=== PATIENT | male | born 1955 | race Hispanic/Latino ===

== ENCOUNTER 2017-07-31 22:03 | Emergency (ER) | payer OTHER ==
[2017-07-31 22:09] VITALS: BP 139/90; PULSE 60; RESP 18; TEMP 98.1; O2SAT 100
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
== END 2017-08-01 00:05 | disposition home or self-care (01) ==
LOC: H.ER 22:03
DX: S13.4XXA Sprain of ligaments of cervical spine, initial encounter (principal); V49.40XA Driver injured in collision with unspecified motor vehicles in traffic accident, initial encounter